=== PATIENT | female | born 1970 | race Caucasian/White ===

== ENCOUNTER 2016-08-03 19:56 | Emergency (ER) | payer MEDICAID ==
--- NOTE | 2016-08-03 20:23 | ED Physician Chart ---
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 Vertigo now improved but still feels dizzy when she moves. For the last 3 days has had left sided abdominal pain radiating to left side of back. Nauseated but no fever, vomiting , diarrhea or dysuria. About 1 1/2 years ago had episode of similar pain which lasted about 4 hr. LMP last week. Allergies:: Allergies Allergy/AdvReac Type Severity Reaction Status Date / Time No Known Allergies Allergy Verified 08/03/16 20:04 Vitals:: Vital Signs - 8 hr 08/03/16 19:57 Temp 98.5 F HR 75 RR 20 BP 153/82 O2 Sat % 97 Historian:: Patient Review:: Nurse's Note Reviewed Review of Systems - Review of Systems General/Constitutional: No fever, No chills Skin: No skin lesions Head: Headache Eyes: No loss of vision ENT: No earache, No nasal drainage, No sore throat, No tinnitus Neck: No neck pain, No stiffness Cardio Vascular: No chest pain, No orthopnea Pulmonary: No SOB GI: Nausea, No vomiting, No diarrhea, Pain G/U: No dysuria, No hematuria, No nacturia Musculoskeletal: No bone or joint pain, Back pain Endocrine: No polyuria, No polydipsia Psychiatric: No prior psych history Hematopoietic: Bruising Allergic/Immuno: No urticaria Neurological: No syncope, No focal symptoms Past Medical History - Past Medical History Past Medical History: HTN Family History: Diabetes Melitus Social History: Non Smoker, No Alcohol Surgical History: , other (two C-sections) Psychiatricy History: None Medication: Reviewed Family Medical History - Family Member Mother Ethnicity: Living Status: Still Living Hx Family Cancer: No Hx Family Coronary Artery Disease: No Hx Family Congestive Heart Failure: No Hx Family Hypertension: Yes Hx Family Stroke: No Hx Family Diabetes: No Hx Family Seizures: No Hx Family Dementia: No Hx Family AIDS: No Hx Family HIV: No Hx Family COPD: No Hx Family Hepatitis: No Hx Family Psychiatric Problems: No Hx Family Tuberculosis: No Physical Exam - Physical Examination General/Constitutional: Well-developed, well-nourished, Alert, No distress Head: Atraumatic Eyes: Lids, conjuctiva normal, PERRL Other Eyes comments:: no nystagmus Skin: No skin lesions, No ecchymosis, Well hydrated, No lymphadenopathy ENMT: External ears, nose nl, TM canals nl, Nasal exam nl, Lips, teeth, gums nl , Oropharynx nl, Tonsils nl Neck: No nuchal rigidity Respiratory: Nl effort/Exclusion, Clear to Auscultation, No Wheeze/Rhonchi/Rales Cardio Vascular: RRR, No murmur, gallop, rubs GI: No organomegaly, No hernia, Normal BS's, Nondistended, No mass/bruits, No McBurney tenderness Other GI comments:: left sided tenderness at level of umbilicus Extremities: Normal digits & nails Neuro/Psych: Alert/oriented, No focal deficits Misc: Normal back Labs/Radiology/EKG Results - Lab Results Comments:: Laboratory Results - last 24 hr 08/03/16 08/03/16 20:00 20:00 Urine Source [place] Urine Color STRAW Urine Clarity CLEAR Urine pH 7.0 Ur Specific [place] 1.010 Urine Protein NEGATIVE Urine Glucose (UA) NEGATIVE Urine Ketones NEGATIVE Urine Blood SMALL H Urine Nitrate NEGATIVE Urine Bilirubin NEGATIVE Urine Urobilinogen 0.2 Ur Leukocyte Esterase NEGATIVE Urine RBC 2-5 Urine WBC NONE SEEN Ur Epithelial Cells NONE SEEN Urine Bacteria NONE SEEN Urine Test NEGATIVE - Radiology Results Results: renal ultrasound normal (no hydronephrosis). Assessment - Assessment General Assessment: at 2200 patient still had some vertigo when she turned her head. Abdomen was soft and point tenderness was present on the left side at the level of the umbilicus and about 1 cm inferior to the level of the umbilicus. Abdominal pain should be of benign etiology and will probably subside without treatment. Pain and tenderness was superior to the LLQ and therefore unlikely to be diverticulitis. Small ureteral calculus is a possibility (since 2-5 RBC in urine) although renal ultrasound is normal. ED Septic Shock - . Is Septic Shock (SBP<90, OR Lactate>4 mmol\L) present?: No - <6hrs of presentation: Vital Signs: Vital Signs - 8 hr 08/03/16 19:57 Temp 98.5 F HR 75 RR 20 BP 153/82 O2 Sat % 97 Reassessment (Disposition) - Reassessment Reassessment Condition:: Improved - Diagnosis Diagnosis:: benign positional vertigo; abdominal pain, etiology uncertain - Aftercare/Follow up Instructions Medication Prescribed:: Antivert 25 mg #20 Sig 1 TID - Patient Disposition Discharge/Transfer:: Home Condition at Disposition:: Stable, Improved
[2016-08-03 20:29] LABS: URINE BILIRUBIN NEGATIVE (NEGATIVE); URINE BLOOD SMALL (NEGATIVE); URINE COLOR STRAW; URINE GLUCOSE (UA) NEGATIVE (NEGATIVE); URINE KETONE NEGATIVE (NEGATIVE); URINE PROTEIN NEGATIVE (NEGATIVE)
[2016-08-03 20:30] LABS: URINE BACTERIA NONE SEEN /hpf (NONE SEEN); URINE EPITHELIAL CELLS NONE SEEN /lpf (FEW); URINE UROBILINOGEN 0.2 E.U./dL (0.2 - 1.0); URINE WBC NONE SEEN /hpf (0-5)
--- NOTE | 2016-08-04 10:53 | Diagnostic Imaging Report ---
Renal ultrasound HISTORY: Left-sided abdominal pain COMPARISON: CT abdomen and pelvis on 03/15/2015 and renal ultrasound on 12/31/2014 Technique: Sonography of the kidneys and urinary bladder was performed in multiple planes. FINDINGS: Exam is limited due to bowel gas. The right kidney measures 11.1 x 4.6 cm. No evidence of focal lesions or hydronephrosis. The left kidney measures 11.5 x 5.4 cm. No evidence of focal lesions or hydronephrosis. The urinary bladder is grossly unremarkable. IMPRESSION: No evidence of hydronephrosis or sonographic evidence of renal stones.
== END 2016-08-03 22:05 | disposition home or self-care (01) ==
LOC: ER 19:56
DX: H81.10 Benign paroxysmal vertigo, unspecified ear (principal); R10.9 Unspecified abdominal pain; I10 Essential (primary) hypertension
CPT/HCPCS: 76770-TC; 81001-TC; 81025-TC

== ENCOUNTER 2018-02-12 06:13 | Emergency (ER) | payer MEDICAID ==
--- NOTE | 2018-02-12 14:50 | ED Physician Chart ---
ED Chief Complaint/HPI - Patient Information Date Seen:: 02/12/18 Time Seen:: 06:20 Chief Complaint:: Fever History of Present Illness:: onset x 3 days of fever, E/As, cough, and congestion; pt denies trauma, LOC, ALOC, AMS, H/As, S/T, neck pain, C/P, SOB, Abd. Pain, A/N/V/D/C, chills, or urinary s/s; pt is eating and is urinating well; pt last urinated one hour [employer] Allergies:: Allergies Allergy/AdvReac Type Severity Reaction Status Date / Time No Known Allergies Allergy Verified 02/12/18 06:37 Historian:: Patient Review:: Nurse's Note Reviewed ED Review of Systems - Review of Systems General/Constitutional: Fever, No chills, No weight loss, No weakness, No diaphoresis, No edema, No loss of appetite Skin: No skin lesions, No rash, No bruising Head: No headache, No light-headedness Eyes: No loss of vision, No pain, No diplopia ENT: Earache, Nasal drainage, No sore throat, No tinnitus Neck: No neck pain, No swelling, No thyromegaly, No stiffness, No mass noted Cardio Vascular: No chest pain, No palpitations, No PND, No orthopnea, No edema Pulmonary: No SOB, No cough, No sputum, No wheezing GI: No nausea, No vomiting, No diarrhea, No pain, No melena, No hematochezia, No constipation, No hematemesis G/U: No dysuria, No frequency, No hematuria, 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, No abnormal vaginal bleed, No contraction Musculoskeletal: No bone or joint pain, No back pain, No muscle pain Endocrine: No polyuria, No polydipsia Psychiatric: No prior psych history, No depression, No anxiety, No suicidal ideation, No homicidal ideation, No auditory hallucination, No visual hallucination Hematopoietic: No bruising, No lymphadenopathy Allergic/Immuno: No urticaria, No angioedema Neurological: No syncope, No focal symptoms, No weakness, No paresthesia, No headache, No seizure, No dizziness, No confusion, No vertigo ED Past Medical History - Past Medical History Obtainable: Yes Past Medical History: No significant medical hx Family History: None Social History: Non Smoker, No Alcohol, No Drug Use, Surgical History: None Psychiatricy History: None Medication: Reviewed Family Medical History - Family Member Mother History Unknown: Yes Ethnicity: Living Status: Still Living Hx Family Cancer: No Hx Family Coronary Artery Disease: No Hx Family Congestive Heart Failure: No Hx Family Hypertension: Yes Hx Family Stroke: No Hx Family Diabetes: No Hx Family Seizures: No Hx Family Dementia: No Hx Family AIDS: No Hx Family HIV: No Hx Family COPD: No Hx Family Hepatitis: No Hx Family Psychiatric Problems: No Hx Family Tuberculosis: No ED Physical Exam - Physical Examination General/Constitutional: Awake, Well-developed, well-nourished, Alert, No distress, GCS 15, Non-toxic appearing, Ambulatory Head: Atraumatic Eyes: Lids, conjuctiva normal, PERRL, EOMI Skin: Nl inspection, No rash, No skin lesions, No ecchymosis, Well hydrated, No lymphadenopathy ENMT: External ears, nose nl, Nasal exam nl, Lips, teeth, gums nl, Oropharynx nl , Tonsils nl Other ENMT comments:: Ears: TMs: dull and injected; + Nasal Congestion Neck: Nontender, Full ROM w/o pain, No JVD, No nuchal rigidity, No bruit, No mass, No stridor Other Neck comments:: supple; no meningeal signs; no cervical tenderness; no bruits Respiratory: Nl effort/Exclusion, Clear to Auscultation, No Wheeze/Rhonchi/Rales Cardio Vascular: RRR, No murmur, gallop, rubs, NL S1 S2, Carotid/Femoral/Distal pulses equal bilaterally GI: No tenderness/rebounding/guarding, No organomegaly, No hernia, Normal BS's, Nondistended, No mass/bruits, No McBurney tenderness, Rectum exam nl Other GI comments:: no pulsatile masses : No CVA tenderness Extremities: No tenderness or effusion, Full ROM, normal strength in all extremities, No edema, Normal digits & nails Neuro/Psych: Alert/oriented, DTR's symmetric, Normal sensory exam, Normal motor strength, Judgement/insight normal, Mood normal, Normal gait, No focal deficits Misc: Normal back, No paraspinal tenderness ED Septic Shock - . Is Septic Shock (SBP<90, OR Lactate>4 mmol\L) present?: No ED Reassessment (Disposition) - Reassessment Reassessment:: pt tolerated po fluids well in ER; pt is asymptomatic upon discharge Reassessment Condition:: Improved - Diagnosis Diagnosis:: Earaches; Otitis Media; Congestion; Sinusitis; Cough; Bronchitis; Fever; URI - Aftercare/Follow up Instructions Aftercare/Follow-Up Instructions:: Counseled pt regarding lab results/diagnosis & need follow up, Refer to Discharge Instructions, Counseled pt & family regarding lab results/diagnosis & need follow up Medication Prescribed:: Rx: Amoxicillin 500mg po tid x 10 days; Tylenol 500mg po qid prn fever/pain; Cool Mist Vaporizer; Fluids; No Swimming - Patient Disposition Discharge/Transfer:: Home Condition at Disposition:: Stable, Improved (RTER prn if existing s/s reoccur and/or get worse and/or any other new s/s occur; ACIs given for all above Dx; Refer to ENT Specialist/Forensic Specialist JOSE MARIA; F/U with PMD in one day or prn; RTER prn if concerned)
== END 2018-02-12 07:29 | disposition home or self-care (01) ==
LOC: ER 06:13
DX: H66.93 Otitis media, unspecified, bilateral (principal); J40 Bronchitis, not specified as acute or chronic; J06.9 Acute upper respiratory infection, unspecified; J32.9 Chronic sinusitis, unspecified
CPT/HCPCS: Z7502

== ENCOUNTER 2018-03-28 22:52 | Emergency (ER) | payer MEDICAID ==
[2018-03-28] MEDS ORDERED: Albuterol/Ipratropium Neb 3 ML AERS HHN ONE ×2 (23:24→23:32)
--- NOTE | 2018-03-28 23:30 | ED Physician Chart ---
ED Chief Complaint/HPI - Patient Information Date Seen:: 03/28/18 Time Seen:: 23:15 Chief Complaint:: shortness of breath History of Present Illness:: Patient has had shortness of breath all day today. He had onset 3 days ago of cough productive of green sputum. No fever. No history of asthma. Patient received a influenza vaccination last flu season but not this season. Patient has in the past been prescribed a metered-dose inhaler by her private physician. Allergies:: Allergies Allergy/AdvReac Type Severity Reaction Status Date / Time No Known Allergies Allergy Verified 02/12/18 06:37 Vitals:: Vital Signs - 8 hr 03/28/18 23:05 Temp 97.8 F HR 79 RR 17 BP 149/90 O2 Sat % 96 Historian:: Patient, Family Member Review:: Nurse's Note Reviewed ED Review of Systems - Review of Systems General/Constitutional: No fever, No chills Skin: No skin lesions Head: No headache Eyes: No loss of vision ENT: No earache Neck: No neck pain Cardio Vascular: No chest pain, No palpitations Pulmonary: Cough, Sputum GI: No nausea, No vomiting, No diarrhea G/U: No dysuria Musculoskeletal: No bone or joint pain Endocrine: No polyuria, No polydipsia Psychiatric: No prior psych history, No depression Hematopoietic: No bruising Allergic/Immuno: No urticaria Neurological: No syncope, No focal symptoms, No weakness ED Past Medical History - Past Medical History Past Medical History: HTN Family History: None Social History: Non Smoker, No Alcohol Surgical History: , other (2 sections) Psychiatricy History: None Medication: None Family Medical History - Family Member Mother History Unknown: Yes Ethnicity: Living Status: Still Living Hx Family Cancer: No Hx Family Coronary Artery Disease: No Hx Family Congestive Heart Failure: No Hx Family Hypertension: Yes Hx Family Stroke: No Hx Family Diabetes: No Hx Family Seizures: No Hx Family Dementia: No Hx Family AIDS: No Hx Family HIV: No Hx Family COPD: No Hx Family Hepatitis: No Hx Family Psychiatric Problems: No Hx Family Tuberculosis: No ED Physical Exam - Physical Examination General/Constitutional: Awake, Well-developed, well-nourished Head: Atraumatic Eyes: Lids, conjuctiva normal, PERRL Skin: Nl inspection, No rash, No skin lesions, No ecchymosis, Well hydrated, No lymphadenopathy ENMT: External ears, nose nl, TM canals nl, Nasal exam nl, Lips, teeth, gums nl , Oropharynx nl, Tonsils nl Neck: No nuchal rigidity Respiratory: Nl effort/Exclusion Other Respiratory comments:: Frequent cough; minimal scattered wheezing Cardio Vascular: RRR, No murmur, gallop, rubs, NL S1 S2 GI: No tenderness/rebounding/guarding, No organomegaly, No hernia, Normal BS's, Nondistended, No mass/bruits, No McBurney tenderness Extremities: Normal digits & nails Neuro/Psych: No focal deficits ED Assessment - Assessment General Assessment: After the breathing treatment patient's coughing stopped. Patient's frequent cough is probably a wheezing equivalent suggestive of reactive airway disease caused by a viral infection. Patient's influenza A and B screen is negative. Patient to be prescribed an albuterol metered-dose inhaler to use 2 puffs every 4 hours as necessary for cough and also a Z-Ruddy. I told the patient and her family that she most likely has a viral infection for which antibiotics will not be effective. ED Septic Shock - . Is Septic Shock (SBP<90, OR Lactate>4 mmol\L) present?: No - <6hrs of presentation: Vital Signs: Vital Signs - 8 hr 03/28/18 23:05 Temp 97.8 F HR 79 RR 17 BP 149/90 O2 Sat % 96 ED Reassessment (Disposition) - Reassessment Reassessment Condition:: Improved - Diagnosis Diagnosis:: Bronchitis - Aftercare/Follow up Instructions Medication Prescribed:: See above - Patient Disposition Discharge/Transfer:: Home Condition at Disposition:: Stable, Unchanged
[2018-03-29 00:03] LABS: INF A SCREEN NEG FOR INF A; INF B SCREEN NEG FOR INF B
== END 2018-03-29 00:29 | disposition home or self-care (01) ==
LOC: ER 22:52
DX: J40 Bronchitis, not specified as acute or chronic (principal); I10 Essential (primary) hypertension; Z98.890 Other specified postprocedural states
CPT/HCPCS: 87804-TC; 94640; Z7502

== ENCOUNTER 2018-09-09 20:20 | Emergency (ER) | payer MEDICAID ==
--- NOTE | 2018-09-09 21:58 | ED Physician Chart ---
ED Chief Complaint/HPI - Patient Information Date Seen:: 09/09/18 Time Seen:: 20:30 Chief Complaint:: Abdominal pain for one day. History of Present Illness:: Pt is primarily Maori speaking, though she speaks adequate Trinidadian. Interpretation is also provided by her per pt's request. Pt came in by private auto because of abdominal pain for one day. Pain is characterized as crampy, diffuse, and intermittent. No fever. Pt had nausea/vomiting earlier today with vomitus consists of gastric content. No hematemesis. Last BM at about 6 pm today that was slightly loose. No hematochezia or melena. Pt states that her abdominal pain has much improved. Allergies:: Allergies Allergy/AdvReac Type Severity Reaction Status Date / Time No Known Allergies Allergy Verified 02/12/18 06:37 Vitals:: Vital Signs - 8 hr 09/09/18 20:25 Temp 98.9 F HR 84 RR 18 BP 130/94 O2 Sat % 96 Historian:: Patient Family MD/PCP:: Dr. Darling LMP:: EMILY 09/02/2018 Review:: Nurse's Note Reviewed ED Review of Systems - Review of Systems General/Constitutional: No fever, No chills, No weakness, No loss of appetite Skin: No skin lesions, No rash, No bruising Head: No headache, No light-headedness Eyes: No loss of vision, No pain, No diplopia ENT: No earache, No nasal drainage, No sore throat Neck: No neck pain, No swelling, No stiffness Cardio Vascular: No chest pain, No palpitations Pulmonary: No SOB, No cough, No wheezing GI: Nausea, Vomiting (transient), No diarrhea, Pain, No melena, No hematochezia , No constipation, No hematemesis G/U: No dysuria, No frequency, No hematuria System Development Manager: No vaginal discharge, No abnormal vaginal bleed Musculoskeletal: No bone or joint pain Endocrine: No polyuria, No polydipsia Psychiatric: No prior psych history, No depression Hematopoietic: No bruising, No lymphadenopathy Allergic/Immuno: No urticaria, No angioedema Neurological: No syncope, No focal symptoms, No weakness, No paresthesia, No headache, No confusion ED Past Medical History - Past Medical History Past Medical History: HTN Social History: Non Smoker, No Alcohol, No Drug Use, , Other (lives with her .) Employment:: unemployed Surgical History: (x 2 with last one about 17 y/a.) Psychiatricy History: None Medication: Reviewed Family Medical History - Family Member Mother History Unknown: Yes Ethnicity: Living Status: Still Living Hx Family Cancer: No Hx Family Coronary Artery Disease: No Hx Family Congestive Heart Failure: No Hx Family Hypertension: Yes Hx Family Stroke: No Hx Family Diabetes: No Hx Family Seizures: No Hx Family Dementia: No Hx Family AIDS: No Hx Family HIV: No Hx Family COPD: No Hx Family Hepatitis: No Hx Family Psychiatric Problems: No Hx Family Tuberculosis: No ED Physical Exam - Physical Examination General/Constitutional: Awake, Well-developed, well-nourished, Alert, Non-toxic appearing Other Gen/Cons comments:: Breathes comfortably, speaks clearly, and interacts appropriately. Head: Atraumatic Eyes: Lids, conjuctiva normal, PERRL, EOMI Skin: Nl inspection, No rash, No skin lesions, No ecchymosis, No lymphadenopathy ENMT: External ears, nose nl, Nasal exam nl, Oropharynx nl Neck: Nontender, Full ROM w/o pain, No nuchal rigidity, No mass Respiratory: Nl effort/Exclusion, Clear to Auscultation, No Wheeze/Rhonchi/Rales Cardio Vascular: RRR, No murmur, gallop, rubs GI: No organomegaly, No hernia, Normal BS's, Nondistended, No mass/bruits, No McBurney tenderness Other GI comments:: Tenderness to palpation at suprapubic region. No R/G. Abdomen is obese but soft. : No CVA tenderness Other comments:: Pelvic and rectal exams: Deferred per pt's request as she now feels much better and after review of CT report. Extremities: No tenderness or effusion, Full ROM, No edema Neuro/Psych: Alert/oriented (oriented x 3), Judgement/insight normal, Mood normal, No focal deficits ED Labs/Radiology/EKG Results - Lab Results Results: Laboratory Results - last 24 hr 09/09/18 09/09/18 09/09/18 20:45 20:45 22:50 WBC 12.3 H RBC 5.74 H Hgb 15.4 Hct 46.2 MCV 80.4 L MCH 26.8 L MCHC Differential 33.4 RDW 13.2 Plt Count 383 MPV 8.8 Neutrophils % 79.9 Lymphocytes % 14.5 L Monocytes % 4.5 Eosinophils % 1.1 Basophils % 0.0 PT INR PTT (Actin FS) Sodium Potassium Chloride Carbon Dioxide Anion Gap BUN Creatinine Est GFR ( Amer) Est GFR (Non-Af Amer) BUN/Creatinine Ratio Glucose Calcium Total Bilirubin AST ALT Alkaline Phosphatase Total Protein Albumin Globulin Albumin/Globulin Ratio Amylase Lipase Urine Source CLEAN C Urine Color YELLOW Urine Clarity HAZY Urine pH 6.5 Ur Specific [place] <= 1.005 Urine Protein NEGATIVE Urine Glucose (UA) NEGATIVE Urine Ketones NEGATIVE Urine Blood LARGE H Urine Nitrate NEGATIVE Urine Bilirubin NEGATIVE Urine Urobilinogen 0.2 Ur Leukocyte Esterase TRACE H Urine RBC 5-10 H Urine WBC 2-5 Ur Epithelial Cells FEW Urine Bacteria MODERATE H Urine Test NEGATIVE 09/09/18 09/09/18 22:50 22:50 WBC RBC Hgb Hct MCV MCH MCHC Differential RDW Plt Count MPV Neutrophils % Lymphocytes % Monocytes % Eosinophils % Basophils % PT 10.0 INR 0.96 PTT (Actin FS) 28.3 Sodium 136 Potassium 3.4 L Chloride 100 Carbon Dioxide 25.3 Anion Gap 14.1 BUN 14 Creatinine 0.7 Est GFR ( Amer) > 60.0 Est GFR (Non-Af Amer) > 60.0 BUN/Creatinine Ratio 20.0 Glucose 111 H Calcium 9.5 Total Bilirubin 0.8 AST 15 ALT 18 Alkaline Phosphatase 71 Total Protein 7.7 Albumin 4.3 Globulin 3.4 Albumin/Globulin Ratio 1.3 Amylase 38 Lipase 18 Urine Source Urine Color Urine Clarity Urine pH Ur Specific [place] Urine Protein Urine Glucose (UA) Urine Ketones Urine Blood Urine Nitrate Urine Bilirubin Urine Urobilinogen Ur Leukocyte Esterase Urine RBC Urine WBC Ur Epithelial Cells Urine Bacteria Urine Test Urine culture result is pending. - Radiology Results Results: CT of abdomen/pelvis: Hepatic steatosis. No hydronephrosis or stone. Small fat containing left hernia. No bowel obstruction or inflammation. Normal appendix. Mild prominence of the bladder wall is nonspecific. Please correlate with urinalysis to evaluate for cystitis. Official report per Dr. Kendra Valentin, radiologist. ED Septic Shock - . Is Septic Shock (SBP<90, OR Lactate>4 mmol\L) present?: No - <6hrs of presentation: Vital Signs: Vital Signs - 8 hr 09/09/18 20:25 Temp 98.9 F HR 84 RR 18 BP 130/94 O2 Sat % 96 ED Reassessment (Disposition) - Reassessment Reassessment:: 2310 Pt has been repeatedly evaluated. Pt feels well now without abdominal pain. Lab results are pending. 09/10/2018 @0025 Pt remains pain free. Lab and CT findings have been reviewed with pt. Pt requests to go home now and does not want further observation/ management in hospital. Aftercare instructions have been given. Interpretation is provided by her daughter Valarie per pt's request. Copies of lab results and CT report have been given to pt to take to her PCP Dr. Darling for further follow-up and evaluation. Reassessment Condition:: Improved - Diagnosis Diagnosis:: Abdominal pain with acute cystitis. Stable. Mild hypokalemia. Mild hyperglycemia. - Aftercare/Follow up Instructions Aftercare/Follow-Up Instructions:: Refer to Discharge Instructions Notes:: Bed rest for today. Increase oral hydration and oral intake of potassium rich foodstuffs such as banana, etc. Abdominal pain instructions have been given. F/U with PCP Dr. Darling in one day for recheck with repeat lab studies: CBC, CMP and urinalysis, as well as f/u on urine culture. Return to ER immediately if condition worsens or if any further questions/problems. Medication Prescribed:: Bactrim DS one tab po q12h for 7 days. D-14 R-0 - Patient Disposition Discharge/Transfer:: Home Time:: 00:30 Condition at Disposition:: Stable, Improved
[2018-09-09] MEDS ORDERED: Morphine Sulfate 2 mg/mL 1mL Syr IV STA (22:13)
[2018-09-09] MEDS ORDERED: Morphine Sulfate 2 mg/mL 1mL Syr ONE (22:42)
[2018-09-09 23:08] LABS: % EOSINOPHILS 1.1 % (0.0-5.0); % LYMPHOCYTES 14.5 % (20.0-50.0); % MONOCYTES 4.5 % (2.0-10.0); % NEUTROPHILS 79.9 % (40.0-80.0); EOSINOPHILE ABSOLUTE 0.1 Th/cmm (0.1-0.4); HEMATOCRIT 46.2 % (41.0-60); HEMOGLOBIN 15.4 gm/dL (12-16); LYMPHOCYTE ABSOLUTE 1.8 Th/cmm (1.5-3.0); MEAN CELL VOLUME 80.4 fl (81-100); MEAN CORPUSCULAR HEMOGLOBIN 26.8 pg (27.0-31.0); MEAN CORPUSCULAR HGB CONC 33.4 pg (28.0-36.0); MEAN PLATELET VOLUME 8.8 fl; MONOCYTE ABSOLUTE 0.6 Th/cmm (0.3-1.0); NEUTROPHILE ABSOLUTE 9.8 Th/cmm (1.8-8.0); PLATELET COUNT 383 Th/cmm (150-400); RED BLOOD COUNT 5.74 Mil/cmm (3.80-5.10); RED CELL DISTRIBUTION WIDTH 13.2 % (11.5-20.0); WHITE BLOOD COUNT 12.3 Th/cmm (4.8-10.8)
[2018-09-09 23:11] LABS: URINE SOURCE CLEAN C
[2018-09-09 23:14] LABS: URINE BILIRUBIN NEGATIVE (NEGATIVE); URINE BLOOD LARGE (NEGATIVE); URINE GLUCOSE (UA) NEGATIVE (NEGATIVE); URINE KETONE NEGATIVE (NEGATIVE); URINE LEUKOCYTE ESTERASE TRACE (NEGATIVE); URINE MICROSCOPIC INDICATED? YES; URINE NITRATE NEGATIVE (NEGATIVE); URINE PH 6.5 (4.6 - 8.0); URINE PROTEIN NEGATIVE (NEGATIVE); URINE UROBILINOGEN 0.2 E.U./dL (0.2 - 1.0)
[2018-09-09 23:16] LABS: URINE CLARITY HAZY (CLEAR); URINE COLOR YELLOW
[2018-09-09 23:23] LABS: INR 0.96 (0.5-1.4)
[2018-09-09 23:26] LABS: ALB/GLOB RATIO 1.3 (1.0-1.8); ALBUMIN 4.3 gm/dL (3.7-5.3); ALKALINE PHOSPHATASE 71 U/L (34-104); AMYLASE SERUM 38 U/L (29-103); ANION GAP 14.1 (7.0-16.0); BILIRUBIN,TOTAL 0.8 mg/dL (0.3-1.0); BUN - UREA NITROGEN 14 mg/dL (7-25); CALCIUM SERUM 9.5 mg/dL (8.6-10.3); CARBON DIOXIDE 25.3 mEq/L (21.0-31.0); CHLORIDE 100 mEq/L (98-107); CREATININE - SERUM 0.7 mg/dL (0.6-1.2); GFR AFRICAN-AMERICAN > 60.0 ml/min (>90); GFR NON AFRICAN-AMERICAN > 60.0 ml/min; GLUCOSE 111 mg/dL (70-105); LIPASE 18 U/L (11-82); POTASSIUM SERUM 3.4 mEq/L (3.5-5.1); SGOT 15 U/L (13-39); SGPT/ALT 18 U/L (7-52); SODIUM SERUM 136 mEq/L (136-145); TOTAL PROTEIN,SERUM 7.7 gm/dL (6.0-8.3)
[2018-09-09 23:26] LABS: URINE BACTERIA MODERATE /hpf (NONE SEEN); URINE EPITHELIAL CELLS FEW /lpf (FEW)
[2018-09-10] MEDS ORDERED: Sulfamethoxazole/TMP 800/160mg Tab PO ONE (00:02)
[2018-09-10] MEDS ORDERED: Potassium Chloride 20 mEq ER Tab PO ONE ×2 (00:02→00:19)
[2018-09-10] MEDS ORDERED: Sulfamethoxazole/TMP 800/160mg Tab ONE (00:20)
--- NOTE | 2018-09-10 10:47 | Diagnostic Imaging Report ---
Exam: CT examination abdomen pelvis HISTORY: Pain Total DLP equals 545 CTDI equals 11.7 Findings: Multiple contiguous thin section of the abdomen pelvis obtained from lower thorax to the pubic symphysis without the administration of oral or intravenous contrast material, the study correlated with prior exam 03/15/2015 The study demonstrates normal aeration of lung parenchyma the bases. The liver parenchyma demonstrates a large granuloma in the posterior aspect of the right lobe of liver. The spleen is intact. The kidneys demonstrate no evidence of obstructive uropathy or nephrolithiasis. The pancreas is normal. The gallbladder is intact. There is no evidence of diverticular disease of diverticulitis. The uterus is normal. The urinary bladder is normal. IMPRESSION: Normal examination of the abdomen and pelvis.
== END 2018-09-10 00:40 | disposition home or self-care (01) ==
LOC: ER 20:20
DX: N30.00 Acute cystitis without hematuria (principal); E87.6 Hypokalemia; R73.9 Hyperglycemia, unspecified; I10 Essential (primary) hypertension; Z98.890 Other specified postprocedural states
CPT/HCPCS: 99284; 96374; 96375; 74176; 36415; 85025; 85610; 87086; 81001; 82150; 81025; 83690; 80053; J2270; J2405